=== PATIENT | male | born 1995 | race Caucasian/White ===

== ENCOUNTER 2017-10-10 06:11 | Day surgery (SDC) | payer BC ==
[2017-10-08 13:34] VITALS: BMI 28.8
[2017-10-10] MEDS ORDERED: DEXAMETHASONE SOD PHOSPHATE/PF 10 MG/ML SDV ONE (06:31)
[2017-10-10] MEDS ORDERED: BUPIVACAINE HCL/PF (5 MG/ML) 30 ML VIAL IJ ONE (06:32)
[2017-10-10] MEDS ORDERED: MIDAZOLAM HCL 2 MG/2 ML SINGLE DOSE VIAL ONE ×2 (06:32→07:39)
[2017-10-10] MEDS ORDERED: EPINEPHrine 1:1,000 1 MG/1 ML - 30ML VIAL (INJECTION) ONE (07:22)
[2017-10-10] MEDS ORDERED: ONDANSETRON 4 MG/2 ML VIAL ONE (07:25)
[2017-10-10] MEDS ORDERED: PROPOFOL 20 ML ONE ×7 (07:25→08:23)
[2017-10-10] MEDS ORDERED: DEXAMETHASONE SOD PHOSPHATE 4 MG/1 ML VIAL ONE (07:25)
[2017-10-10] MEDS ORDERED: SUCCINYLCHOLINE CHLORIDE 200 MG/10 ML VIAL ONE (07:25)
[2017-10-10] MEDS ORDERED: ceFAZolin SODIUM 1 GM VIAL ONE (07:25)
[2017-10-10] MEDS ORDERED: KETOROLAC TROMETHAMINE 30 MG/1 ML VIAL ONE (07:25)
[2017-10-10] MEDS ORDERED: PROMETHAZINE HCL 25 MG/1 ML VIAL IVPUSH PRN (07:54)
[2017-10-10] MEDS ORDERED: ONDANSETRON 4 MG/2 ML VIAL IVPUSH PRN (07:54)
[2017-10-10] MEDS ORDERED: oxyCODONE HCL 5 MG TABLET PO PRN ×2 (07:54)
[2017-10-10] MEDS ORDERED: LACTATED RINGERS SOLUTION 1,000 ML IV SCH (08:00)
--- NOTE | 2017-10-10 10:33 | OP ---
DATE OF OPERATION: 10/10/2017 SURGEON: Prosper Ridley MD GRINDER SET UP OPERATOR JIG: DYANA Stoner PREOPERATIVE DIAGNOSES: 1. Right shoulder instability. 2. Right shoulder rotator cuff tear. POSTOPERATIVE DIAGNOSES: 1. Right shoulder instability. 2. Right shoulder rotator cuff tear. PROCEDURE: Right shoulder arthroscopy with repair of labrum and capsulorrhaphy (CPT code 58953). FINDINGS: 1. Extensive labral tearing from the 12 o'clock to 6 o'clock position on the anterior labrum with posterior labral fraying. 2. Full-thickness rotator cuff tear at the interval anterior to the biceps. 3. Glenohumeral synovitis. 4. Partial biceps tear, less than 5%. 5. Thickened scar tissue in the subacromial space. REPAIR TYPE: Anchors were placed at the 1 o'clock, 3 o'clock, 4 o'clock, 5 o'clock and 6 o'clock position along the anterior labrum. A total of 5 anchors were placed. PROCEDURE: Informed consent was obtained. Patient taken to the operating room. The right upper extremity was prepped and draped in sterile fashion. Using standard arthroscopic technique a posterior incision and portal was made to allow for introduction of the camera into the glenohumeral joint. Prior to surgery and with the camera in the joint examination showed anterior and inferior instability. Extensive tearing of the anterior labrum included avulsion off the anterior glenoid as well as fraying and tearing of the anterior labrum. A small bur was used to create a bleeding surface from the 12 o'clock to 6 o'clock position. This was then enhanced with multiple small drill holes using a 0.062 K-wire to create bleeding surfaces. Anchors were placed as stated above along the anterior labrum. Alternating mattress and simple sutures were placed to secure and repair the existing labral tissue as well as using anterior capsular tissue to create a new labrum. This allowed for closure of the anterior portion. Posterior fraying of the labrum was treated with a shaver and low-setting Bovie and suture was not needed posteriorly. Patient was noted to have a full-thickness interval rotator cuff tear. The camera was placed into the subacromial space. Ends of the tear were debrided. 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 Shoulder was then drained. Single suture placed in all portals. Sterile dressing was placed. The patient was transferred to the recovery room without complication. Oanh [id number]
[2017-10-10 11:00] VITALS: BP 140/80; PULSE 77; TEMP 98
--- NOTE | 2017-10-13 11:38 | PATH ---
Surgical Pathology Report Patient Name: RONNIE MON Med. Rec. #: [id number] /Age/Gender: 1995 (Age: 22) / M Account: [id number] Location: [facility] Taken: 10/10/2017 Received: 10/10/2017 Reported: 10/13/2017 Physicians: Prosper Ridley M.D. Specimen(s) Received RIGHT SHOULDER SHAVINGS Clinical History Labral tear Final Diagnosis RIGHT SHOULDER, SHAVINGS: SYNOVIAL TISSUE AND FIBROCARTILAGINOUS TISSUE WITH DEGENERATIVE CHANGE. Electronically Signed Elsie Morales M.D. Gross Description Received in formalin, labeled "right shoulder shavings," is a 3.0 x 2.8 x 0.3 cm. aggregate of gill-yellow soft tissue fragments. A sales solutions representative portion is submitted in one cassette. DL/10/10/2017 saudi/10/10/2017
== END 2017-10-10 10:40 | disposition home or self-care (01) ==
LOC: FASU 06:11
PROVIDERS: ATTEND Orthopaedic Surgery
PROC: 0RQJ4ZZ Repair Right Shoulder Joint, Percutaneous Endoscopic Approach (ICD-10-PCS; principal; 2017-10-10 08:06)
DX: M25.311 Other instability, right shoulder (principal); M75.121 Complete rotator cuff tear or rupture of right shoulder, not specified as traumatic; M65.811 Other synovitis and tenosynovitis, right shoulder; M66.811 Spontaneous rupture of other tendons, right shoulder
CPT/HCPCS: 88304-TC